=== PATIENT | female | born 1990 | race Hispanic/Latino ===

== ENCOUNTER 2019-12-02 23:19 | Emergency (ER) | payer OTHER ==
[2019-12-02 23:47] LABS: BASOPHILS % (AUTO) 0.3 % (0.0-5.0); EOSINOPHILS % (AUTO) 2.1 % (0.0-8.0); HEMATOCRIT 36.8 % (36-48); LYMPHOCYTES % (AUTO) 37.8 % (21.0-51.0); MEAN CORPUSCULAR HEMOGLOBIN 31.7 pg (27.0-33.0); MEAN CORPUSCULAR HGB CONC 33.2 g/dL (32.0-36.0); MEAN CORPUSCULAR VOLUME 95.6 fL (79-99); MONOCYTES % (AUTO) 4.6 % (3.0-13.0); NEUTROPHILS % (AUTO) 54.9 % (40.0-77.0); PLATELET COUNT (AUTO) 271 K/uL (130-400); RED BLOOD CELL COUNT(AUTO) 3.85 MIL/uL (4.00-5.50); RED CELL DISTRIBUTION WIDTH 12.5 % (11.0-15.5)
[2019-12-02 23:59] LABS: CREATININE 0.6 mg/dL (0.5-1.5); POTASSIUM 4.1 mmol/L (3.5-5.1)
[2019-12-03] MEDS ORDERED: PANTOPRAZOLE 40 MG/VIAL ONE (00:09)
[2019-12-03] MEDS ORDERED: METOCLOPRAMIDE 10 MG/2 ML VIAL ONE (00:09)
[2019-12-03] MEDS ORDERED: ONDANSETRON HCL 4 MG/2 ML VIAL ONE (00:09)
[2019-12-03] MEDS ORDERED: FAMOTIDINE/PF 20 MG/2 ML VIAL IV ONE (00:10)
[2019-12-03 00:28] LABS: ALBUMIN 3.8 g/dL (3.5-5.0); BILIRUBIN,TOTAL 0.2 mg/dL (0.2-1.0); TOTAL PROTEIN, SERUM 7.7 g/dL (6.0-8.3)
[2019-12-03 02:24] LABS: APPEARANCE,URINE Clear (CLEAR); BILIRUBIN,URINE Negative (NEGATIVE); COLOR,URINE Yellow (YELLOW); GLUCOSE, URINE (UA) Negative (NEGATIVE); KETONES,URINE 40 mg/dL (NEGATIVE); LEUKOCYTE ESTERASE ,URINE Negative (NEGATIVE); NITRATE,URINE Negative (NEGATIVE); OCCULT BLOOD,URINE Trace (NEGATIVE); PROTEIN,URINE Negative (NEGATIVE); UROBILINOGEN,URINE 0.2 mg/dL (0.2-1.0)
[2019-12-03 02:28] LABS: HCG,QUAL RESULT POSITIVE (NEGATIVE)
[2019-12-03 02:34] LABS: BACTERIA,URINE None Seen /HPF (None Seen); RBC,URINE 0-1 /HPF (0-1); WBC,URINE None Seen /HPF (0-1)
== END 2019-12-03 02:58 | disposition home or self-care (01) ==
LOC: EDH 23:19
DX: O20.0 Threatened abortion (principal); Z3A.01 Less than 8 weeks gestation of pregnancy
CPT/HCPCS: 36415 ×2; 76801; 80053; 81001; 81025; 83690; 84702; 85025; 86850; 86900; 86901; 93005; 96361; 96374; 96375; 99285; C9113; J2405; J2765; J3490

== ENCOUNTER 2021-08-22 21:40 | Emergency (ER) | payer MEDICAID ==
[~2021-08-22] VITALS: Ht 154.9 cm; Wt 59.4 kg
[2021-08-22 22:18] LABS: BASOPHILS % (AUTO) 0.3 % (0.0-5.0); EOSINOPHILS % (AUTO) 1.6 % (0.0-8.0); HEMATOCRIT 35.3 % (36-48); MEAN CORPUSCULAR HEMOGLOBIN 28.2 pg (27.0-33.0); MEAN CORPUSCULAR HGB CONC 31.4 g/dL (32.0-36.0); MEAN CORPUSCULAR VOLUME 89.8 fL (79-99); MONOCYTES % (AUTO) 7.5 % (3.0-13.0); NEUTROPHILS % (AUTO) 55.4 % (40.0-77.0); PLATELET COUNT (AUTO) 274 K/uL (130-400); RED BLOOD CELL COUNT(AUTO) 3.93 MIL/uL (4.00-5.50); RED CELL DISTRIBUTION WIDTH 13.6 % (11.0-15.5); WHITE BLOOD COUNT (AUTO) 9.2 K/uL (4.8-10.8)
[2021-08-22 22:20] LABS: APPEARANCE,URINE Cloudy (CLEAR); BILIRUBIN,URINE Negative (NEGATIVE); COLOR,URINE Yellow (YELLOW); GLUCOSE, URINE (UA) Negative (NEGATIVE); KETONES,URINE Trace mg/dL (NEGATIVE); LEUKOCYTE ESTERASE ,URINE Negative (NEGATIVE); NITRATE,URINE Negative (NEGATIVE); OCCULT BLOOD,URINE Negative (NEGATIVE); PH,URINE 5.5 (5.0-8.0); PROTEIN,URINE Trace mg/dL (NEGATIVE)
[2021-08-22 22:27] LABS: HCG,QUAL RESULT NEGATIVE (NEGATIVE)
[2021-08-22 22:32] LABS: CREATININE 0.7 mg/dL (0.5-1.5); POTASSIUM 3.8 mmol/L (3.5-5.1)
[2021-08-22 22:35] LABS: RBC,URINE 0-1 /HPF (0-1); SQUAMOUS EPITHELIAL CELL,UR Few /HPF (0-2); WBC,URINE 0-1 /HPF (0-1)
[2021-08-22 22:37] LABS: AMORPHOUS SEDIMENT,UR Few /LPF (None Seen); BACTERIA,URINE Few /HPF (None Seen)
[2021-08-22 22:37] LABS: ALBUMIN 3.6 g/dL (3.5-5.0); BILIRUBIN,TOTAL 0.3 mg/dL (0.2-1.0)
[2021-08-22 22:38] LABS: CALCIUM OXALATE CRYSTALS,UR Rare /LPF (None Seen)
[2021-08-22] MEDS ORDERED: PRED20TA3 PO (22:53)
[2021-08-22] MEDS ORDERED: NAPR500T6 PO (22:53)
[2021-08-22] MEDS ORDERED: PREDNISONE 20 MG TABLET PO ONE (23:00)
[2021-08-22] MEDS ORDERED: KETOROLAC 30MG VIAL (30MG/ML) IM ONE (23:00)
[2021-08-22 23:08] VITALS: BP 105/61
== END 2021-08-22 23:13 | disposition home or self-care (01) ==
LOC: EDH 21:40
DX: M54.12 Radiculopathy, cervical region (principal); Z98.890 Other specified postprocedural states
CPT/HCPCS: 36415; 80053; 81001; 81025; 84484; 85025; 93005; 96372; 99284; J1885

== ENCOUNTER → 2021-12-03 | Outpatient (CLI) | payer MEDICAID ==
[~2021-12-03] MED LIST: DIATR MEGLU/DIATRIZOATE SODIUM 30 ML BOTTLE ONE; NAPR500T6 PO; PRED20TA3 PO
== END | disposition home or self-care (01) ==
LOC: RAH 08:49
PROVIDERS: ATTEND Family Medicine
DX: K21.9 Gastro-esophageal reflux disease without esophagitis (principal)
CPT/HCPCS: 74240; Q9963

== ENCOUNTER 2022-12-01 19:05 | Emergency (ER) | payer MEDICAID ==
[~2022-12-01] VITALS: Ht 152.4 cm; Wt 63.5 kg
[~2022-12-01 19:05] MED LIST changes: -DIATR MEGLU/DIATRIZOATE SODIUM 30 ML BOTTLE ONE
[2022-12-01 19:10] VITALS: BP 91/55; PULSE 78; RESP 16; O2SAT 100
== END 2022-12-01 20:23 | disposition left against medical advice (07) ==
LOC: EDH 19:05
DX: F41.0 Panic disorder [episodic paroxysmal anxiety] (principal); R51.9 Headache, unspecified; Z53.21 Procedure and treatment not carried out due to patient leaving prior to being seen by health care provider
CPT/HCPCS: 99281